=== PATIENT | female | born 1930 | race Caucasian/White ===

== ENCOUNTER 2016-12-04 21:49 | Emergency (ER) | payer MEDICARE ==
[~2016-12-04] VITALS: Ht 157.5 cm; Wt 50.0 kg
[2016-12-04] MEDS ORDERED: XANA0.5T PO (22:06)
[2016-12-04] MEDS ORDERED: MUCI600T31 PO (22:06)
[2016-12-04] MEDS ORDERED: ELIQ2.5T PO (22:06)
[2016-12-04] MEDS ORDERED: METO1TAB87 PO (22:06)
[2016-12-04] MEDS ORDERED: SIMV40TA2 PO (22:06)
[2016-12-04] MEDS ORDERED: amlodipine PO (22:06)
[2016-12-04] MEDS ORDERED: DIGO0.12 PO (22:06)
--- NOTE | 2016-12-04 23:10 | REPUSA ---
CT of the head Clinical history: Trauma. Technique: Multiple axial CT images were obtained through the head without administration of contrast . Findings: The ventricles and sulci are symmetric bilaterally. There is no evidence of acute hemorrhag e or infarct. There is no midline shift, mass effect, or extra-axial fluid collection. The osseous st ructures are unremarkable. The visualized paranasal sinuses and mastoid air cells are clear. Impression: Negative study.
[2016-12-05 01:39] VITALS: BP 161/84
--- NOTE | 2016-12-05 08:14 | REP ---
LEFT LOWER LEG, FOUR VIEWS: HISTORY: Trauma. There is no acute fracture or dislocation. There is narrowing of the knee joint space. There is an old healed fracture of the proximal fibula. IMPRESSION: There is no acute fracture or dislocation. Signed by Damien Ernst MD 12/05/2016 08:16 A
== END 2016-12-05 01:50 | disposition home or self-care (01) ==
LOC: M ED 21:49
DX: S80.12XA Contusion of left lower leg, initial encounter (principal); S00.03XA Contusion of scalp, initial encounter; I48.91 Unspecified atrial fibrillation; I25.10 Atherosclerotic heart disease of native coronary artery without angina pectoris; Z79.01 Long term (current) use of anticoagulants; W01.198A Fall on same level from slipping, tripping and stumbling with subsequent striking against other object, initial encounter; Y92.091 Bathroom in other non-institutional residence as the place of occurrence of the external cause; Y93.E1 Activity, personal bathing and showering; Y99.9 Unspecified external cause status